=== PATIENT | female | born 1945 | race Caucasian/White ===

== ENCOUNTER 2017-05-09 10:52 | Emergency (ER) | payer OTHER ==
[2017-05-09 10:59] VITALS: TEMP 98.8
[2017-05-09] MEDS ORDERED: ONDANSETRON DISINTEGRATING 4 MG TAB PO ONE (11:34)
--- NOTE | 2017-05-09 11:42 | EDPHY ---
H & P Stated Complaint: flu like symptoms/fever/chills cough/n/v Time Seen by Provider: 05/09/17 11:22 HPI/ROS: CHIEF COMPLAINT: Flu-like symptoms HISTORY OF PRESENT ILLNESS: The patient presents the ED with 2 days of flu- like symptoms including slight cough, myalgias and nausea. The patient denies significant past medical history. She did not receive a flu shot this year. She denies any abdominal pain or diarrhea. She denies flank pain or dysuria. REVIEW OF SYSTEMS: A comprehensive 10 point review of systems is otherwise negative aside from elements mentioned in the history of present illness. Source: Patient Exam Limitations: No limitations - Personal History Current Tetanus/Diphtheria Vaccine: No - Medical/Surgical History Hx Asthma: No Hx Chronic Respiratory Disease: No Hx Diabetes: No Hx Cardiac Disease: No Hx Renal Disease: No Hx Cirrhosis: No Hx Alcoholism: No Hx HIV/AIDS: No Hx Splenectomy or Spleen Trauma: No Other PMH: back surg - Social History Smoking Status: Never smoked - Physical Exam Exam: General Appearance: Alert, no distress Eyes: Pupils equal and round no pallor or injection ENT, Mouth: Mucous membranes moist Respiratory: There are no retractions, lungs are clear to auscultation Cardiovascular: Regular rate and rhythm Gastrointestinal: Abdomen is soft and nontender, no masses, bowel sounds normal Neurological: A&O, normal motor function, normal sensory exam, normal cranial nerves Skin: Warm and dry, no rashes Musculoskeletal: Neck is supple nontender Extremities: symmetrical, full range of motion Constitutional: Initial Vital Signs Temperature (C) 37.1 C 05/09/17 10:56 Heart Rate 86 05/09/17 10:56 Respiratory Rate 16 05/09/17 10:56 Blood Pressure 166/101 H 05/09/17 10:56 O2 Sat (%) 94 05/09/17 10:56 O2 Delivery Mode Room Air Allergies/Adverse Reactions: No Known Allergies Allergy (Unverified 05/09/17 10:56) Home Medications: Medication Instructions Recorded Ondansetron Odt [Zofran Odt] 4 mg PO Q4PRN PRN #20 tab 05/09/17 Oseltamivir Phosphate [Tamiflu] 75 mg PO BID #10 cap 05/09/17 Medical Decision Making ED Course/Re-evaluation: The patient is well-appearing without clinical evidence of pneumonia or meningitis. Her abdominal exam is benign. The patient presents to the ED with an influenza like illness. She will be treated empirically with Tamiflu and given a prescription for Zofran. She is well-hydrated and nontoxic. She has been advised to return to the ED for markedly worsening symptoms or other concerns. Differential Diagnosis: Differential diagnosis considered includes asthma, bronchitis, pneumonia, influenza - Data Points Laboratory Results: 05/09/17 11:15 Nasal Influenza A PCR NEGATIVE FOR FLU A (NEGATIVE) Nasal Influenza B PCR FLU B DETECTED (NEGATIVE) Medications Given: Discontinued Medications Ondansetron HCl (Zofran Odt) 4 mg PO EDNOW ONE Stop: 05/09/17 11:35 Last Admin: 05/09/17 11:36 Dose: 4 mg Departure - Departure Disposition: Home, Routine, Self-Care Clinical Impression: Influenza Condition: Good Instructions: Influenza (ED) Additional Instructions: 1. Please take Tamiflu as directed for next 5 days. 2. Zofran as needed for nausea. 3. Take Ibuprofen or Motrin 600 mg by mouth three times a day. 4. Tylenol 650 mg every 6 hr for pain and fever. 5. Return to the ED for markedly worsening symptoms including difficulty breathing, vomiting, increasing pain or other concerns. 6. You have been given the number of our on-call primary care provider if you wish to establish primary care. Referrals: José Luis Bansal MD [Medical Doctor] - As per Instructions Prescriptions: Ondansetron Odt [Zofran Odt] 4 mg PO Q4PRN PRN #20 tab PRN Reason: For Nausea Oseltamivir Phosphate [Tamiflu] 75 mg PO BID #10 cap
[2017-05-09 12:19] VITALS: BP 159/92; PULSE 82; RESP 20; O2SAT 93
== END 2017-05-09 12:19 | disposition home or self-care (01) ==
DX: J11.1 Influenza due to unidentified influenza virus with other respiratory manifestations (principal)